=== PATIENT | female | born 1960 | race Caucasian/White ===

== ENCOUNTER 2020-10-23 10:18 | Emergency (ER) | payer BC, OTHER ==
[~2020-10-23] VITALS: Ht 149.9 cm; Wt 54.4 kg
[2020-10-23 10:18] VITALS: BP_SYST 129
[~2020-10-23 10:18] MED LIST: LEVO200T8 PO; LOSA50TA28 PO; METF-381 PO
--- NOTE | 2020-10-23 10:18 | NUR ---
BROUGHT BACK TO BED #7 AND TRIAGED. REPORT GIVEN TO JANNIE
--- NOTE | 2020-10-23 10:19 | NUR ---
pt arrives from home w/ c/o increasing dizziness, vomitng and diarrhea. Pt also reports H/a 6/10 nonradiating. salvage engineer placed.
--- NOTE | 2020-10-23 10:20 | NUR ---
# 20 gauge angiocath placed to RAC. Use of asceptic technique. Opsite placed over site. Blood return noted. Blood for lab drawn from site. Flushed with 10 cc of normal saline. No evidence of infiltration noted. Patient tolerated well.
[2020-10-23] MEDS ORDERED: ONDANSETRON HCL 4 MG/2 ML VIAL IVP ONE (10:30)
--- NOTE | 2020-10-23 10:31 | NUR ---
DR GOVEA AT BEDSIDE FOR EVALUATION
[2020-10-23] MEDS ORDERED: NACL 0.9% 1,000 ML IV ONE (10:45)
[2020-10-23] MEDS ORDERED: ACETAMINOPHEN 325 MG TABLET PO ONE (10:45)
[2020-10-23 10:48] LABS: BILIRUBIN,URINE NEGATIVE (NEGATIVE); CLARITY/URINE CLEAR (CLEAR); COLOR,URINE YELLOW (YELLOW); GLUCOSE,URINE TRACE (NEGATIVE); KETONES,URINE 1+ (NEGATIVE); LEUKOCYTE ESTERASE ,URINE TRACE (NEGATIVE); NITRITE, URINE NEGATIVE (NEGATIVE); PH,URINE 7.5 (5.0-8.0); PROTEIN URINE NEGATIVE (NEGATIVE); UROBILINOGEN,URINE 0.2 (0.2-1.0)
[2020-10-23 10:51] LABS: BLOOD, URINE TRACE (NEGATIVE)
[2020-10-23 10:55] LABS: BACTERIA,URINE RARE /HPF (None Seen)
[2020-10-23 11:26] LABS: BASOPHILS % (AUTO) 0.3 % (0.0-2.0); EOSINOPHILS % (AUTO) 0.3 % (0.0-4.0); HEMATOCRIT 44.9 % (36-48); HEMOGLOBIN 15.3 g/dL (12.0-16.0); LYMPHOCYTES # (AUTO) 1.3 K/uL (1.0-5.5); LYMPHOCYTES % (AUTO) 17.9 % (20.5-51.5); MEAN CORPUSCULAR HEMOGLOBIN 32 pg (27-31); MEAN CORPUSCULAR HGB CONC 34 % (32-36); MEAN CORPUSCULAR VOLUME 95 fL (79.0-98.0); MONOCYTES # (AUTO) 0.4 K/uL (0.0-1.0); MONOCYTES % (AUTO) 5.2 % (1.7-9.3); NEUTROPHILS # (AUTO) 5.7 K/uL (1.8-7.7); NEUTROPHILS % (AUTO) 76.3 % (40.0-70.0); PLATELET COUNT (AUTO) 259 K/uL (130-430); RED BLOOD CELL COUNT(AUTO) 4.74 MIL/uL (4.2-6.2); RED CELL DISTRIBUTION WIDTH 12.4 % (9.0-15.0); WHITE BLOOD COUNT (AUTO) 7.5 K/uL (4.8-10.8)
[2020-10-23 11:29] LABS: ANION GAP 11 (5-15); CALCIUM 8.5 mg/dL (8.4-11.0); CHLORIDE 104 mmol/L (98-107); CREATININE 0.54 mg/dL (0.55-1.30); GLUCOSE 98 mg/dL (70-99); POTASSIUM 3.1 mmol/L (3.5-5.1); SODIUM SERUM 144 mmol/L (136-145); UREA NITROGEN, BLOOD 13 mg/dL (8-21)
[2020-10-23 11:31] LABS: PROTHROMBIN TIME 10.3 SECS (9.5-12.5)
[2020-10-23 11:33] LABS: GFR AFRICAN AMERICAN 149 mL/min (>90)
[2020-10-23 11:43] LABS: ALANINE AMINOTRANSFERASE 36 U/L (12-78); ALBUMIN 3.7 g/dL (3.4-4.8); ASPARTATE AMINOTRANSFERASE 19 U/L (10-37); BILIRUBIN,DIRECT 0.1 mg/dL (0.0-0.3); LIPASE 30 U/L (73-393); THYROID STIMULATING HORMONE 0.33 uIu/mL (0.36-3.74); TOTAL BILIRUBIN 0.5 mg/dL (0.0-1.0)
[2020-10-23] MEDS ORDERED: POTASSIUM CHLORIDE 20 MEQ TAB.PRT.SR PO ONE (11:45)
[2020-10-23] MEDS ORDERED: DIPHENHYDRAMINE HCL 50 MG CAPSULE PO ONE (12:00)
[2020-10-23] MEDS ORDERED: PROCHLORPERAZINE EDISYLATE 10 MG/2 ML VIAL IVP ONE (12:00)
[2020-10-23] MEDS ORDERED: MAGNESIUM SULFATE 1 GM/2 ML VIAL IVP ONE (12:00)
--- NOTE | 2020-10-23 12:35 | NUR ---
medicated w/ Compazine, Magnesium, and benadryl per MD order
[2020-10-23 12:56] VITALS: BP_SYST 147
--- NOTE | 2020-10-23 12:58 | NUR ---
Patient given written and verbal discharge instructions and verbalizes understanding. ER MD discussed with patient the results and treatment provided. Patient in stable condition. ID arm band removed. IV catheter removed intact and dressing applied, no active bleeding. Patient educated on pain management and to follow up with PMD. Pain Scale 3/10. Opportunity for questions provided and answered. Medication side effect fact sheet provided.
== END 2020-10-23 12:58 | disposition home or self-care (01) ==
LOC: SED 10:18
DX: E87.6 Hypokalemia (principal); R11.10 Vomiting, unspecified; R51.9 Headache, unspecified; B34.9 Viral infection, unspecified; I10 Essential (primary) hypertension; E11.9 Type 2 diabetes mellitus without complications; E07.9 Disorder of thyroid, unspecified; E78.00 Pure hypercholesterolemia, unspecified; Z79.899 Other long term (current) drug therapy
CPT/HCPCS: 36415; 70450; 74176; 76376; 80048; 80076; 81000; 83690; 84439; 84443; 84484; 85025; 85610; 93005; 96361; 96365; 96375; 99285; J0780; J2405; J3475; J7030; Q0163

== ENCOUNTER 2020-10-27 12:48 | Emergency (ER) | payer BC ==
[~2020-10-27] VITALS: Ht 149.9 cm; Wt 54.4 kg
[2020-10-27 13:06] VITALS: BP_SYST 137
--- NOTE | 2020-10-27 13:06 | NUR ---
Placed in room 2 . Placed on cardiac care unit nurse, blood pressure machine and pulse oximeter. To gown for exam. Side rails up.
--- NOTE | 2020-10-27 13:10 | NUR ---
PT CAME IN FROM HOME C/O N/V SINCE SAT WITH WEAKNESS AND R EYE PRESSURE. STATES SHE HAS NOT BEEN TAKING ANY MEDICATION AT HOME. PT IS AMBULATORY, AAOX4, V/S STABLE
--- NOTE | 2020-10-27 13:23 | NUR ---
ER DR. VILLAGOMEZ AT THE BEDSIDE EXAMINING PT
[2020-10-27] MEDS: ONDANSETRON HCL 4 MG/2 ML VIAL IVP ONE (13:48)
[2020-10-27] MEDS: NACL 0.9% 1,000 ML IV ONE (13:48)
[2020-10-27 13:55] LABS: BILIRUBIN,URINE NEGATIVE (NEGATIVE); BLOOD, URINE NEGATIVE (NEGATIVE); CLARITY/URINE CLEAR (CLEAR); COLOR,URINE YELLOW (YELLOW); GLUCOSE,URINE NEGATIVE (NEGATIVE); KETONES,URINE 1+ (NEGATIVE); LEUKOCYTE ESTERASE ,URINE TRACE (NEGATIVE); NITRITE, URINE NEGATIVE (NEGATIVE); PROTEIN URINE NEGATIVE (NEGATIVE); UROBILINOGEN,URINE 0.2 (0.2-1.0)
--- NOTE | 2020-10-27 14:00 | NUR ---
Patient resting quietly. No acute distress noted. Vital signs within normal range.
[2020-10-27 14:20] LABS: BACTERIA,URINE RARE /HPF (None Seen); RBC,URINE 0-3 /HPF (0-3)
[2020-10-27 14:21] LABS: MUCUS,URINE 2+ /LPF (None Seen)
[2020-10-27] MEDS ORDERED: ONDA4TAB5 PO (14:43)
[2020-10-27 15:00] VITALS: BP_SYST 137
--- NOTE | 2020-10-27 15:03 | NUR ---
Patient given written and verbal discharge instructions and verbalizes understanding. ER MD discussed with patient the results and treatment provided. Patient in stable condition. ID arm band removed. IV catheter removed intact and dressing applied, no active bleeding. Rx of ZOFRAN given. Patient educated on pain management and to follow up with PMD. Pain Scale 0/10. Opportunity for questions provided and answered. Medication side effect fact sheet provided.
== END 2020-10-27 15:03 | disposition home or self-care (01) ==
LOC: SED 12:48
DX: R11.2 Nausea with vomiting, unspecified (principal); I10 Essential (primary) hypertension; E11.9 Type 2 diabetes mellitus without complications; E07.9 Disorder of thyroid, unspecified; E78.00 Pure hypercholesterolemia, unspecified; Z79.899 Other long term (current) drug therapy
CPT/HCPCS: 81000; 96361; 96374; 99283; J2405; J7030